=== PATIENT | male | born 1995 | race Caucasian/White ===

== ENCOUNTER 2018-12-13 07:18 | Emergency (ER) | payer OTHER ==
[2018-12-13] MEDS: ONDANSETRON (ODT) 4 MG TAB ODT (07:44)
[2018-12-13] MEDS: HYDROCODONE/APAP (5/325) TAB PO (07:44)
== END 2018-12-13 09:15 | disposition home or self-care (01) ==
LOC: FTE 07:18
DX: S02.92XA Unspecified fracture of facial bones, initial encounter for closed fracture (principal); Y04.8XXA Assault by other bodily force, initial encounter
CPT/HCPCS: 70486; 99284-25